=== PATIENT | male | born 1980 | race Caucasian/White ===

== ENCOUNTER 2024-05-08 13:40 | Emergency (ER) | payer OTHER ==
[2024-05-08] MEDS ORDERED: diphenhydrAMINE 50 MG/ML VIAL ONE ×2 (14:17→14:29)
[2024-05-08] MEDS ORDERED: Metoclopramide HCl 10 MG (2 mL) VIAL ONE (14:17)
[2024-05-08] MEDS ORDERED: Acetaminophen 500 MG TAB ONE (14:17)
== END 2024-05-08 16:40 | disposition home or self-care (01) ==
LOC: ERS 13:40
DX: J32.4 Chronic pansinusitis (principal); R51.9 Headache, unspecified; E11.9 Type 2 diabetes mellitus without complications; I10 Essential (primary) hypertension; E78.00 Pure hypercholesterolemia, unspecified; F32.A Depression, unspecified; Z55.0 Illiteracy and low-level literacy; Z91.51 Personal history of suicidal behavior
CPT/HCPCS: 70450; 96374; 96375; J1200; J2765